=== PATIENT | female | born 1965 | race Two or more races ===

== ENCOUNTER 2021-02-21 20:33 | Inpatient (IN) | payer OTHER ==
[~2021-02-21] VITALS: Ht 162.6 cm; Wt 146.1 kg
[2021-02-26] MEDS ORDERED: PRE PROTEIN1 EACH PO (21:27)
[2021-02-26] MEDS ORDERED: FUROSEMIDE20 MG PO (21:27)
[2021-02-26] MEDS ORDERED: LOSARTAN POTAS100 MG PO (21:27)
[2021-02-26] MEDS ORDERED: FAMOTIDINE20 MG PO (21:27)
[2021-02-26] MEDS ORDERED: METFORMIN HCL500 MG PO (21:27)
[2021-02-26] MEDS ORDERED: METOPROLOL TART50 MG PO (21:27)
[2021-02-26] MEDS ORDERED: ALBUTEROL2.5 MG/3 M IH (21:27)
== END 2021-02-28 19:11 | disposition home or self-care (01) | DRG 315 ==
LOC: MEDI 20:33
PROVIDERS: ADMIT Internal Medicine Cardiovascular Disease; ATTEND Internal Medicine Cardiovascular Disease
PROC: 3E0F7SF Introduction of Other Gas into Respiratory Tract, Via Natural or Artificial Opening (ICD-10-PCS; principal; 2021-02-21)
PROC: 4A033R1 Measurement of Arterial Saturation, Peripheral, Percutaneous Approach (ICD-10-PCS; 2021-02-21)
PROC: 3E0F7GC Introduction of Other Therapeutic Substance into Respiratory Tract, Via Natural or Artificial Opening (ICD-10-PCS; 2021-02-22)
PROC: B54DZZZ Ultrasonography of Bilateral Lower Extremity Veins (ICD-10-PCS; 2021-02-23)
PROC: BW2510Z Computerized Tomography (CT Scan) of Chest, Abdomen and Pelvis using Low Osmolar Contrast, Unenhanced and Enhanced (ICD-10-PCS; 2021-02-23)
DX: I27.20 Pulmonary hypertension, unspecified (principal); Z68.43 Body mass index [BMI] 50.0-59.9, adult; E87.2 Acidosis; I10 Essential (primary) hypertension; E66.01 Morbid (severe) obesity due to excess calories; E11.9 Type 2 diabetes mellitus without complications; G47.33 Obstructive sleep apnea (adult) (pediatric); Z99.89 Dependence on other enabling machines and devices; R06.02 Shortness of breath
CPT/HCPCS: 240; 71275

== ENCOUNTER 2025-02-26 06:25 | Day surgery (SDC) | payer OTHER ==
[~2025-02-26 06:25] MED LIST: ALBUTEROL2.5 MG/3 M IH; FAMOTIDINE20 MG PO; FUROSEMIDE20 MG PO; LOSARTAN POTAS100 MG PO; METFORMIN HCL500 MG PO; METOPROLOL TART50 MG PO; PRE PROTEIN1 EACH PO
[2025-02-26] MEDS ORDERED: fentaNYL CITRATE 50 MCG/ML AMPUL IV PUSH ONE (12:45)
[2025-02-26] MEDS ORDERED: MIDAZOLAM HCL 2 MG/2 ML VIAL IV ONE (12:45)
[2025-02-26] MEDS ORDERED: DIPHENHYDRAMINE HCL 50 MG/ML VIAL 1ML IV ONE (12:45)
== END 2025-02-26 14:00 | disposition home or self-care (01) ==
LOC: AMB-ENDOS 06:25
PROVIDERS: ATTEND Internal Medicine
DX: D12.8 Benign neoplasm of rectum (principal); D12.4 Benign neoplasm of descending colon; D12.0 Benign neoplasm of cecum; D12.2 Benign neoplasm of ascending colon; K63.5 Polyp of colon; R19.4 Change in bowel habit; Z80.0 Family history of malignant neoplasm of digestive organs; Z86.0101 Personal history of adenomatous and serrated colon polyps; K57.30 Diverticulosis of large intestine without perforation or abscess without bleeding